=== PATIENT | female | born 1990 | race Caucasian/White ===

== ENCOUNTER 2019-03-04 08:00 | Outpatient (CLI) | payer SELFPAY ==
[2019-03-06 10:07] LABS: SOURCE VAGINAL
== END 2019-03-04 23:59 | disposition home or self-care (01) ==
LOC: LAB.R 08:00
PROVIDERS: ATTEND Obstetrics & Gynecology
DX: Z71.89 Other specified counseling (principal)
CPT/HCPCS: 87529

== ENCOUNTER 2021-03-08 23:06 | Emergency (ER) | payer MEDICAID ==
[2021-03-09 00:35] VITALS: BP 142/96
--- NOTE | 2021-03-09 00:39 | ED Physician Documentation ---
History of Present Illness - Stated complaint Stated Complaint: CP - Chief complaint Chief Complaint: Cardiac - Additonal information Additional information: The patient presents with complaints of having had a panic attack. She reports that about 4 months ago she had an ectopic . Since that time she has had events where she becomes very anxious.. She will then develop brief, sharp pains in her chest and shoulders and tingling in her hands. She says that "I feel as though I need to run outside or something, It as though I felt like someone were going to push me off of a tommie."She reports that she had her thyroid tested recently and that the results were "on the low end" but that medications were not warranted. She denies a history of heart or lung disease. Review of Systems Constitutional: denies: Fever, Chills, Myalgias, Fatigue Eyes: denies: Loss of vision, Decreased vision, Photophobia Ears: denies: Ear pain, Tinnitus/ringing Nose: denies: Congestion Cardiac: reports: Chest pain / pressure, Palpitations. denies: Pedal edema, Calf pain GI: denies: Abdominal Pain, Abdominal Swelling, Nausea, Vomiting, Constipation, Diarrhea : denies: Dysuria Skin: denies: Rash Musculoskeletal: reports: Reviewed and negative. denies: Extremity swelling Neurologic: reports: Numbness. denies: Focal weakness Psychiatric: reports: Anxiety PD PAST MEDICAL HISTORY - Past Medical History Past Medical History: Yes Psych: Anxiety - Past Surgical History Past Surgical History: Yes /RN HEMATOLOGY: Other - Present Medications Home Medications: Ambulatory Orders Medication Instructions Recorded Confirmed No Known Home Medications 02/25/20 03/09/21 - Allergies Allergies/Adverse Reactions: Allergies Allergy/AdvReac Type Severity Reaction Status Date / Time No Known Drug Allergies Allergy Verified 03/08/21 23:11 - Social History Does the pt smoke?: No Smoking Status: Never smoker Does the pt drink ETOH?: No Does the pt have substance abuse?: No - Immunizations Immunizations are current?: Yes - POLST Patient has POLST: No PD ED PE NORMAL - General General: Alert and oriented X 3, No acute distress - HEENT HEENT: Atraumatic, PERRL, EOMI, Moist mucous membranes - Neck Neck: Supple, no meningeal sign, No JVD, No bruit - Cardiac Cardiac: RRR, No murmur, No gallop, No rub - Respiratory Respiratory: No respiratory distress, Clear bilaterally - Abdomen Abdomen: Normal bowel sounds, Soft, Non tender, Non distended, No organomegaly - Derm Derm: Normal color, Warm and dry - Extremities Extremities: No deformity, No edema, No calf tenderness / cord - Neuro Neuro: Alert and oriented X 3, 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, No motor deficit, No sensory deficit Eye Opening: Spontaneous Motor: Obeys Commands Verbal: Oriented GCS Score: 15 - Psych Psych: Normal mood, Normal affect Results - Vitals Vitals: Vital Signs - 24 hr 03/08/21 03/08/21 03/09/21 23:12 23:14 00:34 Temperature 36.7 C 36.7 C Heart Rate 107 H 107 H 88 Respiratory 20 20 14 Rate Blood Pressure 149/87 H 149/87 H 142/96 H O2 Saturation 99 99 99 03/09/21 00:45 Temperature 36.7 C Heart Rate 88 Respiratory 14 Rate Blood Pressure 142/96 H O2 Saturation 99 Oxygen O2 Source Room air - EKG (time done) No standard instances Rhythm: Sinus tachycardia (Nonspecific repolarization changes. There are no old studies to compare with.) Compare to prior EKG: Old EKG unavailable PD MEDICAL DECISION MAKING - ED course Complexity details: re-evaluated patient, d/w patient ED course: I had an extended discussion with the patient about the pathophysiology of anxiety and panic disorders. Clinically, this appears to be what she is suffering from. We discussed potential treatments for this including preventive and abortive medications as well as discussion with a psychologist by biofeedback therapies. She was encouraged to contact her PCP to discuss this further. Additionally, she was encouraged to call or return if her symptoms worsen or if new symptoms were to develop. Departure - Departure Disposition: 01 Home, Self Care Clinical Impression: Panic attacks Condition: Stable Instructions: ED Panic Attack Follow-Up: Sebastian Hanson MD [Primary Care Provider] - Within 1 week Discharge Date/Time: 03/09/21 00:45
== END 2021-03-09 00:45 | disposition home or self-care (01) ==
LOC: ED 23:06
DX: F41.0 Panic disorder [episodic paroxysmal anxiety] (principal); R00.0 Tachycardia, unspecified
CPT/HCPCS: 93005; 99283; 99284

== ENCOUNTER 2021-09-24 18:09 | Emergency (ER) | payer MEDICAID, OTHER ==
[2021-09-24 18:23] VITALS: BP 132/86
--- OUTSIDE RECORDS SUMMARY | 2021-09-24 18:24 | EXTERNAL MEDICAL SUMMARY RPT | Continuity of Care Document ---
:1990 Author Organization [facility] Address [address] [place] [address] Phone Care Team Providers Name Role Phone Garde Unavailable Unavailable Miscellaneous Unavailable Unavailable Allergies No information. Encounters No information. Medications No information. Problems date description facility [id number] Recurrent loss [facility] Procedures date description facility [id number] [facility] Results No information. Vital Signs date measurement value source 20210810 weight_standard 167.99 lb 20210810 weight_metric 76.2 kg 20210810 height_standard 64 in [id number] height_metric 162.56 cm 20210810 BP_systolic 130 mm[Hg] 20210810 BP_diastolic 92 mm[Hg] 20210810 BMI 28.8 kg/m2
--- NOTE | 2021-09-24 18:36 | ED Physician Documentation ---
History of Present Illness - Stated complaint Stated Complaint: ABD PX,DIZZY - Additonal information Additional information: 31-year-old female presents emergency department for evaluation of acute onset upper abdominal pain. She describes waves of cramps that radiated across her abdomen that lasted for a number of hours. Some nausea but no vomiting. She reports that the cramping and sensations dissipated by the time she arrived to the ER though now she feels fairly fatigued. Last menstrual cycle 1 week ago. Denies possibility of . Takes progesterone for cycle regulation and PCOS. Past surgical history includes right oophorectomy secondary to ectopic adnexal . Review of Systems Constitutional: denies: Fever, Chills Nose: reports: Reviewed and negative Throat: reports: Reviewed and negative Cardiac: reports: Reviewed and negative GI: reports: Abdominal Pain, Nausea. denies: Vomiting : reports: Reviewed and negative Skin: reports: Reviewed and negative Musculoskeletal: reports: Reviewed and negative PD PAST MEDICAL HISTORY - Past Medical History Past Medical History: No Cardiovascular: None Respiratory: None Neuro: None Endocrine/Autoimmune: None GI: None VENEER SAWYER: Other : None HEENT: None Psych: Anxiety Musculoskeletal: None Derm: None Other Past Medical History: PCOS - Past Surgical History Past Surgical History: Yes /VENEER SAWYER: Other - Present Medications Home Medications: Ambulatory Orders Medication Instructions Recorded Confirmed Progesterone,Micronized 200 mg PO DAILY 09/24/21 09/24/21 [Prometrium] - Allergies Allergies/Adverse Reactions: Allergies Allergy/AdvReac Type Severity Reaction Status Date / Time No Known Drug Allergies Allergy Verified 09/24/21 18:18 - Social History Does the pt smoke?: No Smoking Status: Never smoker Does the pt drink ETOH?: Yes Does the pt have substance abuse?: No - Immunizations Immunizations are current?: No Immunizations: Other immun not current - POLST Patient has POLST: No PD ED PE NORMAL - General General: Alert and oriented X 3, No acute distress - HEENT HEENT: Atraumatic, Moist mucous membranes - Neck Neck: Supple, no meningeal sign, No JVD - Cardiac Cardiac: RRR - Respiratory Respiratory: No respiratory distress - Abdomen Abdomen: Normal bowel sounds, Soft, Non tender (Unable to elicit any abdominal tenderness with light or deep palpation) - Back Back: No CVA TTP, No spinal TTP - Derm Derm: Normal color - Extremities Extremities: No deformity, No tenderness to palpate, Normal ROM s pain - Neuro Neuro: Alert and oriented X 3 Eye Opening: Spontaneous Motor: Obeys Commands Verbal: Oriented GCS Score: 15 - Psych Psych: Normal mood Results - Vitals Vitals: Vital Signs - 24 hr 09/24/21 18:19 Temperature 37.0 C Heart Rate 68 Respiratory 16 Rate Blood Pressure 132/86 H O2 Saturation 100 Oxygen O2 Source Room air - Labs Labs: Laboratory Tests 09/24/21 09/24/21 09/24/21 18:28 18:47 18:47 WBC 7.6 RBC 4.78 Hgb 14.1 Hct 41.7 MCV 87.2 MCH 29.5 MCHC 33.8 RDW 12.7 Plt Count 330 MPV 9.7 Neut # (Auto) 3.6 Lymph # (Auto) 3.1 Levy # (Auto) 0.6 Eos # (Auto) 0.2 Baso # (Auto) 0.1 Absolute Nucleated RBC 0.00 Nucleated RBC % 0.0 Sodium 141 Potassium 3.2 L Chloride 102 Carbon Dioxide 27 Anion Gap 12.0 BUN 15 Creatinine 0.9 Estimated GFR (MDRD) 74 L Glucose 110 H Calcium 10.0 Total Bilirubin 0.5 AST 21 ALT 26 Alkaline Phosphatase 30 L Total Protein 8.0 Albumin 5.0 Globulin 3.0 Albumin/Globulin Ratio 1.7 Lipase 32 Urine Color YELLOW Urine Clarity CLEAR Urine pH 6.0 Ur Specific [place] 1.025 Urine Protein NEGATIVE Urine Glucose (UA) NEGATIVE Urine Ketones NEGATIVE Urine Occult Blood NEGATIVE Urine Nitrite NEGATIVE Urine Bilirubin NEGATIVE Urine Urobilinogen 0.2 (NORMAL) Ur Leukocyte Esterase NEGATIVE Ur Microscopic Review NOT INDICATED Urine Culture Comments NOT INDICATED Urine HCG, Qual NEGATIVE PD MEDICAL DECISION MAKING - ED course Complexity details: reviewed results, re-evaluated patient, considered differential, d/w patient ED course: Well-appearing 31-year-old female presents emergency department for evaluation of sudden onset waves of cramping upper abdominal pain. Symptoms had fully resolved by the time she arrived to the ER. She wonders if it could have been the ice cream that she ate. She thinks she may be developing a lactose allergy. However given a very benign abdominal exam with essentially unremarkable labs will defer any further imaging or testing. Patient is to follow-up with primary care provider. Emergent return precautions otherwise discussed. Departure - Departure Disposition: 01 Home, Self Care Clinical Impression: Upper abdominal pain Condition: Stable Record reviewed to determine appropriate education?: Yes Instructions: ED Abdominal Pain Cause Unkn Fem Ch Comments: Calbrian, you are seen today in the emergency department for upper abdominal pain that began suddenly but has mostly resolved by the time you arrived here. Your screening labs today are essentially normal with no worrisome findings. It is not clear what the cause of your abdominal pain was. I recommend you discuss this ED visit with your primary care provider. If symptoms return, you have fevers higher than 102 or uncontrolled vomiting then please return immediately to the ER for second evaluation.
[2021-09-24 18:52] LABS: BASOPHILS # (AUTO) 0.1 10^3/uL (0.0-0.1); BASOPHILS % (AUTO) 1.3 %; EOSINOPHILS # (AUTO) 0.2 10^3/uL (0.0-0.7); HCT - HEMATOCRIT 41.7 % (37.0-47.0); HGB - HEMOGLOBIN 14.1 g/dL (12.0-16.0); LYMPHOCYTES # (AUTO) 3.1 10^3/uL (1.5-3.5); MEAN CORPUSCULAR HEMOGLOBIN 29.5 pg (27.0-31.0); MEAN CORPUSCULAR HGB CONC 33.8 g/dL (32.0-36.0); MEAN CORPUSCULAR VOLUME 87.2 fL (81.0-99.0); MEAN PLATELET VOLUME 9.7 fL (7.9-10.8); MONOCYTES # (AUTO) 0.6 10^3/uL (0.0-1.0); MONOCYTES % (AUTO) 8.3 %; NEUTROPHILS # (AUTO) 3.6 10^3/uL (1.5-6.6); NEUTROPHILS % (AUTO) 47.3 %; PLT - PLATELET COUNT 330 10^3/uL (130-450); RED BLOOD COUNT 4.78 10^6/uL (4.20-5.40); RED CELL DISTRIBUTION WIDTH 12.7 % (12.0-15.0); WHITE BLOOD COUNT 7.6 x10^3/uL (4.8-10.8)
[2021-09-24 18:53] LABS: BILIRUBIN,URINE NEGATIVE (NEGATIVE); GLUCOSE, URINE (UA) NEGATIVE (NEGATIVE); KETONES,URINE (UA) NEGATIVE (NEGATIVE); LEUKOCYTE ESTERASE, URINE NEGATIVE (NEGATIVE); NITRITE,URINE NEGATIVE (NEGATIVE); OCCULT BLOOD,URINE NEGATIVE (NEGATIVE); PROTEIN,URINE NEGATIVE (NEGATIVE); UROBILINOGEN,URINE 0.2 (NORMAL) E.U./dL (NORMAL)
[2021-09-24 18:56] LABS: CLARITY,URINE CLEAR (CLEAR); HCG UR QUAL NEGATIVE
[2021-09-24 19:05] LABS: ALBUMIN/GLOBULIN RATIO 1.7 (1.0-2.2); BILIRUBIN,TOTAL 0.5 mg/dL (0.2-1.0); CREATININE 0.9 mg/dL (0.4-1.0); POTASSIUM 3.2 mmol/L (3.5-5.0)
== END 2021-09-24 19:25 | disposition home or self-care (01) ==
LOC: ED 18:09
DX: R10.10 Upper abdominal pain, unspecified (principal)
CPT/HCPCS: 36415; 80053; 81001; 81003; 81025; 83690; 85025; 87086; 99282; 99283